=== PATIENT | female | born 1935 | race Hispanic/Latino ===

== ENCOUNTER 2022-03-18 10:05 | Emergency (ER) | payer OTHER, SELFPAY ==
[~2022-03-18] VITALS: Ht 157.5 cm; Wt 49.9 kg
[~2022-03-18 10:05] MED LIST: ACET12.56 PO; ASPI-556 PO; ESCI-8 PO; ESOM40CA PO; FOLI-74 PO; IBAN150T16 PO; LEVO88TA7 PO; MONT-39 PO; OMEG100014 PO; ROSU20TA23 PO
[2022-03-18 11:43] VITALS: BP 140/47
== END 2022-03-18 12:07 | disposition home or self-care (01) ==
LOC: EDH 10:05
DX: S01.81XA Laceration without foreign body of other part of head, initial encounter (principal); E78.00 Pure hypercholesterolemia, unspecified; Z79.899 Other long term (current) drug therapy; W22.8XXA Striking against or struck by other objects, initial encounter; Y93.89 Activity, other specified; Y92.89 Other specified places as the place of occurrence of the external cause; Y99.8 Other external cause status
CPT/HCPCS: 12013; 70450

== ENCOUNTER 2022-03-28 12:35 | Emergency (ER) | payer MEDICARE, OTHER ==
[~2022-03-28] VITALS: Ht 170.2 cm; Wt 52.2 kg
[2022-03-28 13:00] VITALS: BP 116/36
== END 2022-03-28 15:05 | disposition home or self-care (01) ==
LOC: EDH 12:35
DX: S01.81XD Laceration without foreign body of other part of head, subsequent encounter (principal); F32.A Depression, unspecified; E78.00 Pure hypercholesterolemia, unspecified; M19.90 Unspecified osteoarthritis, unspecified site; X58.XXXD Exposure to other specified factors, subsequent encounter
CPT/HCPCS: 99281